=== PATIENT | male | born 1995 | race Hispanic/Latino ===

== ENCOUNTER 2025-03-08 10:26 | Emergency (ER) | payer SELFPAY ==
[~2025-03-08] VITALS: Ht 177.8 cm; Wt 108.9 kg
[2025-03-08 10:39] VITALS: TEMP 97.6
[2025-03-08] MEDS ORDERED: KETOROLAC TROMETHAMINE 30 MG/ML VIAL ONE (10:52)
[2025-03-08] MEDS: ONDANSETRON HCL INJ 2MG/ML 2ML 2 MG/ML VIAL IV STA ×2 (10:55→13:29)
[2025-03-08] MEDS: KETOROLAC TROMETHAMINE 30 MG/ML VIAL IV STA (10:55)
[2025-03-08 11:14] LABS: BASOPHILS % 0.5 % (0.0-1.0); EOSINOPHILS % 1.8 % (0.0-6.0); LYMPHOCYTES % 55.3 % (18.0-39.1); MONOCYTES % 9.0 % (4.4-11.3); NEUTROPHILS % 33.2 % (38.7-80.0); RED CELL DISTRIBUTION WIDTH 12.8 % (11.7-14.4)
[2025-03-08] MEDS: FENTANYL CITRATE/PF 100MCG/2 ML INJ IV PRN (11:19)
[2025-03-08 11:48] LABS: EST GLOMERULAR FILTRATION RATE 88.0 ML/MIN (>=60)
[2025-03-08] MEDS ORDERED: ONDANSETRON HCL INJ 2MG/ML 2ML 2 MG/ML VIAL ONE (13:26)
[2025-03-08] MEDS: SODIUM CHLORIDE 0.9% 1000ML 1,000 ML IV SCH (13:29)
[2025-03-08] MEDS ORDERED: FLOMAX0.4 MG PO (13:35)
[2025-03-08] MEDS ORDERED: KETOROLAC TROME10 MG PO (13:35)
[2025-03-08] MEDS ORDERED: ONDANSETRON ODT4 MG PO (13:35)
[2025-03-08] MEDS ORDERED: ULTRAM 50MG50 MG PO (13:36)
[2025-03-08 14:06] VITALS: PULSE 73; RESP 20; O2SAT 100
[2025-03-08 14:17] LABS: LEUKOCYTE ESTERASE ,URINE NEGATIVE (NEGATIVE); PROTEIN,URINE DIPSTICK 1+ (NEGATIVE); URINE UROBILINOGEN 0.2 mg/dL (0.2 - 1)
[2025-03-08 14:24] LABS: EPITHELIAL CELLS,URINE FEW /LPF; WBC,URINE (MAN) 0-5 /HPF (0-5)
== END 2025-03-08 14:32 | disposition home or self-care (01) ==
LOC: ER 10:49
DX: R10.31 Right lower quadrant pain (principal); N20.2 Calculus of kidney with calculus of ureter; R11.2 Nausea with vomiting, unspecified
CPT/HCPCS: 36415; 74176; 80053; 81001; 85025; 99284; J1885; J2405; J3010; J7030